=== PATIENT | female | born 1995 | race Caucasian/White ===

== ENCOUNTER 2017-08-21 09:36 | Day surgery (SDC) | payer OTHER ==
[2017-08-20 13:10] VITALS: BMI 24.5
[~2017-08-21] VITALS: Ht 149.9 cm; Wt 57.3 kg
[2017-08-21] VITALS (11 sets, daily range): BP systolic 103–132; BP diastolic 45–82; PULSE 56–86; RESP 14–19; Ht 149.9 cm; Wt 57.3 kg
--- NOTE | 2017-08-21 10:29 | HPN ---
Date/Time of Note Date/Time of Note DATE: 08/21/17 TIME: 10:29 Interval H&P Admission Note Pt. seen H&P reviewed: No system changes MARILU PETERSON MD Aug 21, 2017 10:29
[2017-08-21] MEDS ORDERED: HYDROCODONE/APAP (5/325) TAB PO PRN (10:30)
--- NOTE | 2017-08-21 10:31 | SIPON ---
Date/Time of Note Date/Time of Note DATE: 08/21/17 TIME: 10:30 Operative Report Preoperative Diagnosis DNS, TH, Nasal Fx, chronic sinusitis Postoperative Diagnosis same Operation/Procedure Performed STM, ORNFx, Bilateral ESS Surgeon see signature line captain assistant n/a Anesthesia: general Estimated blood loss: 10 - 50 ml's Transfusion Required none Specimen septal bone, sinus contents Grafts/Implants none Complications none MARILU PETERSON MD Aug 21, 2017 10:31
[2017-08-21] MEDS ORDERED: LIDOCAINE 1%/EPI 30 ML INJ ONE (12:01)
[2017-08-21] MEDS ORDERED: OXYMETAZOLINE 0.05% 15 ML NAS SPRAY NASAL ONE (12:02)
[2017-08-21] MEDS ORDERED: MIDAZOLAM 1 MG/ML 2 ML INJ ONE (12:36)
[2017-08-21] MEDS ORDERED: FENTAnyl 50 MCG/ML VIAL ONE (12:36)
--- NOTE | 2017-08-21 13:14 | CONS ---
Date/Time of Note Date/Time of Note DATE: 08/21/17 TIME: 13:11 Consultation Date/Type/Reason Admit Date/Time Date of Consultation: Aug 21, 2017 Hx of Present Illness After anesthesia induced, it was found during the "time out" that the consent was incorrect. It was documented correctly in my office notes, and was fully discussed with the patient not only during the office visit, but immediately prior to the surgery in the holding area. The procedure was fully discussed, and she understands all the risks, benefits and alternatives as documented in my office notes. Social History Smoking Status: Never smoker Exam/Review of Systems Vital Signs Vitals Vital Signs Date Time Temp Pulse Resp B/P Pulse Ox O2 Delivery O2 Flow Rate FiO2 08/21/17 11:12 97.5 72 16 113/77 100 Medications Medications Current Medications Acetaminophen/ Hydrocodone Bitart (Mineral (5/325)) 1 tab Q6H PRN PO PAIN LEVEL 6 -10; Start 08/21/17 at 10:30 MARILU PETERSON MD Aug 21, 2017 13:14
[2017-08-21] MEDS ORDERED: LIDOCAINE 2% (SDV) 5 ML INJ ONE (14:43)
[2017-08-21] MEDS ORDERED: PROPOFOL 20 ML ONE (14:43)
[2017-08-21] MEDS ORDERED: ONDANSETRON 4 MG INJ ONE (14:43)
[2017-08-21] MEDS ORDERED: ROCURONIUM 50 MG INJ ONE (14:43)
[2017-08-21] MEDS ORDERED: FENTAnyl 50 MCG/ML VIAL IV PRN (15:30)
[2017-08-21] MEDS ORDERED: MEPERIDINE 25 MG INJ IV PRN (15:30)
[2017-08-21] MEDS ORDERED: ONDANSETRON 4 MG INJ IV PRN (15:30)
[2017-08-21] MEDS ORDERED: DIPHENHYDRAMINE 50 MG INJ IV PRN (15:30)
== END 2017-08-21 16:38 | disposition home or self-care (01) ==
LOC: SDS 09:36
PROVIDERS: ATTEND Otolaryngology
DX: J34.2 Deviated nasal septum (principal)
CPT/HCPCS: 30140; 30520; 84703; 88300; 88304; J2250; J2405; J3010; Z7512; Z7610